=== PATIENT | male | born 1940 | race Caucasian/White ===

== ENCOUNTER → 2023-12-01 13:42 | Outpatient (REF) | payer MEDICARE, BC, SELFPAY ==
[2023-12-01 14:26] LABS: ALT (SGPT) 19 U/L (0-50); AST (SGOT) 27 U/L (17-59); Albumin 4.3 g/dl (3.5-5.0); Alkaline Phosphatase 62 U/L (38-126); Blood Urea Nitrogen 37 mg/dl (9-20); Calcium 9.6 mg/dl (8.4-10.2); Carbon Dioxide 26 mmol/L (22-30); Chloride 109 mmol/L (98-107); Glucose 107 mg/dl (70-99); Potassium 4.3 mmol/L (3.5-5.1); Sodium 140 mmol/L (135-145); Total Bilirubin 0.8 mg/dl (0.2-1.3); Total Protein 7.3 g/dl (6.3-8.2); eGFR 37.35
== END ==
LOC: RAD 13:42
PROVIDERS: ATTENDING PHYSICIAN Internal Medicine Cardiovascular Disease; FAMILY PHYSICIAN Internal Medicine; REFERRING PHYSICIAN Nurse Practitioner Family
DX: I48.92 Unspecified atrial flutter (principal); I73.9 Peripheral vascular disease, unspecified; R25.2 Cramp and spasm; I65.23 Occlusion and stenosis of bilateral carotid arteries
CPT/HCPCS: 36415; 80053; 93880

== ENCOUNTER → 2024-01-15 12:57 | Outpatient (REF) | payer MEDICARE, BC, SELFPAY | LOC: RAD 12:57 | PROVIDERS: ATTENDING PHYSICIAN Nurse Practitioner Family | DX: M79.606 Pain in leg, unspecified (principal); R22.43 Localized swelling, mass and lump, lower limb, bilateral | CPT/HCPCS: 93922; 93925 ==

== ENCOUNTER → 2024-06-17 17:00 | Outpatient (REF) | payer MEDICARE, BC, SELFPAY ==
[2024-06-26 09:04] LABS: HPV, High Risk Detected; HPV, High Risk Source Anal
== END ==
LOC: CLAB 17:00
PROVIDERS: ATTENDING PHYSICIAN Physician Assistant
DX: Z72.52 High risk homosexual behavior (principal)
CPT/HCPCS: 87624; 88112

== ENCOUNTER → 2024-07-20 20:03 | Outpatient (REF) | payer MEDICARE, BC, SELFPAY | LOC: PAVMRI 20:03 | PROVIDERS: ATTENDING PHYSICIAN Physician Assistant Medical; FAMILY PHYSICIAN Internal Medicine; REFERRING PHYSICIAN Pain Medicine Interventional Pain Medicine | DX: M54.16 Radiculopathy, lumbar region (principal) | CPT/HCPCS: 72148 ==

== ENCOUNTER 2024-09-15 06:22 | Day surgery (SDC) | payer MEDICARE, BC, SELFPAY ==
[2024-09-13 14:11] VITALS: BMI 23.1
[2024-09-15 11:15] VITALS: BP 128/85
[2024-09-15] MEDS: CELEBREX 200 MG PO (11:35)
[2024-09-15] MEDS: TYLENOL 1000 MG PO (11:35)
[2024-09-15 11:36] VITALS: BMI 23.1
[2024-09-15 14:00] VITALS: BP 123/65
--- NOTE | 2024-09-15 14:12 | W.IMMPOSTOP ---
Surgical Immed Post Op Note
-
Primary Surgeon: Jesse Adamson MD
Assisting Surgeon: MELANIE Morris
Pre-op Diagnosis: Anal dysplasia
Post-op Diagnosis: Anal dysplasia
Procedure Performed: High resolution anoscopy, anal biopsy, bilateral pudendal nerve block
Anesthesia Type: Sedation
Specimen / Cultures: Multiple, per op note
Estimated Blood Loss: 10 mL
Complications: None
Operative Findings: Per op note
--- NOTE | 2024-09-15 14:13 | OR.RPT ---
Operative Report
Operative Report
DATE OF OPERATION: 09/15/24
SURGEON: Jesse Adamson MD
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
OPERATION: Exam under anesthesia, high-resolution anoscopy, multiple anal biopsy, bilateral pudendal nerve block
ASSISTANTS:
1. MELANIE Morris
ANESTHESIA: Sedation with local
ESTIMATED BLOOD LOSS: 10 mL
FINDINGS:
1. Mild anal stenosis noted due to a narrow fibrotic band in the distal anal canal associated with a small fissure, about 3 mm x 1 mm, in the right posterior aspect of the anal canal; fibrotic band biopsied x 2 and edge of fissure biopsied
2. No obvious lesions noted; significant amount of acetowhite with Lugol's negative circumferentially in the distal anal canal, biopsied at multiple sites
SPECIMENS:
1. Posterior right deep anal biopsy
2. Posterior right superficial anal biopsy
3. Posterior midline band anal biopsy
4. Right lateral superficial anal biopsy
5. Right anterior deep anal biopsy
6. Anterior left superficial anal biopsy
7. Anterior midline band anal biopsy
8. Left lateral superficial anal biopsy
DRAINS: None
COMPLICATIONS: None
INDICATIONS: The patient is a 84-year-old male who initially presented with perianal irritation and itching associated with spotting of blood. As he has a history of MSM, an anal Pap was performed, which showed HPV 16 and atypical squamous cells
of undetermined significance. He was treated for hemorrhoids with Anusol cream, which resolved his symptoms. He was recommended to undergo high resolution anoscopy, which was attempted in the office. However, due to pain and discomfort, this was
aborted. Therefore, the patient was recommended to have high-resolution anoscopy with possible biopsy and fulguration done in the operating room with sedation. The operation was discussed with the patient in detail, including the risks, benefits and
alternatives. Risks described included, but not limited to bleeding, infection, urinary retention, damage to nearby structures such as the anal sphincter, fecal incontinence, anal stenosis, missed lesions, progression to anal cancer despite
monitoring and treatment, and anesthetic risks. The patient understood and agreed to proceed. The consent was signed and placed in the chart.
PROCEDURE IN DETAIL: The patient was taken to the operating room. The patient was placed on the operating table in prone position. Sequential compression devices were placed bilaterally. Sedation was commenced without complication. Two seat belts
were secured around the legs and upper back. The buttocks were taped apart. The perineum was shaved, prepped and draped in the usual fashion. A time-out was performed verifying the correct patient, procedure, operative site, positioning, and
special equipment.
Local anesthesia used was a mixture of 60 mL of 0.25% Marcaine epinephrine and 0.6 mg of dexamethasone. 40 mL was injected perianally at the beginning of the case. The anorectal exam was performed assessing all four quadrants of the anal canal
using Hill-Lanza retractors in progressively increasing size. There was a mild distal anal stenosis noted from a palpable fibrotic band, which would not accommodate the large Hill-Lanza retractor. There was a small anal fissure noted in the
posterior quadrant just right of midline. This was noted just distal to the fibrotic band and was quite small, approximately 3 mm x 1 mm in size. He had small to moderate internal hemorrhoids in the usual 3-column distribution. They did not
prolapse and were not irritated or bleeding, so they were left alone.
I placed a ray-rogelio soaked in 5% acetic acid within the anal canal and folded an external portion of it to cover the gurjit-anal region. This was left in place for 3 minutes and then removed. The anal canal was again visualized with Hill-Lanza
retractors. Each quadrant was examined using the laparoscope on highest zoom, allowing for high-resolution. Lugol's solution was then swabbed onto each quadrant under direct visualization using high-resolution. The direct visualization of the
proximal anal canal was significantly difficult due to the mild distal stenosis.
I first evaluated the posterior quadrant. The majority of the distal anoderm appeared acetowhite and Lugol's negative. However, this was flat with no visual or palpable lesions. I suspect this atypical staining may be related to fibrosis as
opposed to dysplasia. I performed 3 biopsies in the posterior quadrant. The first was just proximal to the dentate line to the right of midline, which was an area that appeared to have a mosaic pattern, overlying a hemorrhoid. The second biopsy
was distal to the dentate line off midline towards the right, and included the margin of the anal fissure. The third biopsy was in the posterior midline and was overlying the fibrotic band. Bleeding from each biopsy site was controlled with
electrocautery.
I evaluated the right lateral quadrant. Again, the majority of the distal anoderm appeared acetowhite and Lugol's negative. No visible lesions noted. The fourth biopsy was taken from the distal end of canal in the right lateral position.
Bleeding was controlled with electrocautery. The fifth biopsy was taken just proximal to the dentate line in the right anterior position due to an area of epithelium with a mosaic pattern. This was overlying a hemorrhoid. Electrocautery was not
sufficient to control the bleeding. Therefore, I placed a [id number] 2-0 Vicryl stitch at this biopsy site and hemostasis was achieved.
I evaluated the anterior quadrant. Again, the majority of the distal anoderm appeared acetowhite and Lugol's negative. No visible lesions noted. The sixth biopsy taken was in the anterior aspect, just left of midline, just distal to the dentate
line. The seventh biopsy was taken from the anterior midline at the level of the fibrotic band. Bleeding was controlled with electrocautery.
I evaluated the left lateral quadrant. Again, the majority of the distal anoderm appeared acetowhite and Lugol's negative. I performed the eighth biopsy in the left lateral position, distal to the dentate line. Bleeding was controlled with
electrocautery.
All biopsies were performed using a DeBakey forceps, elevating the tissue and excising a biopsy with Metzenbaum scissors, avoiding injury to deeper structures. The remaining 20 mL of local were injected. 5 mL was injected bilaterally for a pudendal
nerve block. 10 mL was injected around the surgical site and perianally. Hemostasis was reassessed once more using the small Hill-Lanza and was confirmed.
At this point, the procedure was complete. All needle, sponge and instrument counts were correct. The patient tolerated the procedure well and was transferred to the recovery room in stable condition with gauze dressing in place secured with silk
tape.
The assistance of Alexandra was required due to the complexity of the procedure. During the procedure, Alexandra assisted with retraction and laparoscopic visualization. I was present for the entirety of the case.
DICTATED BY: Jesse Adamson MD
[2024-09-15 14:15] VITALS: BP 114/66
[2024-09-15 14:30] VITALS: BP 119/70
[2024-09-15 14:45] VITALS: BP 111/74
== END 2024-09-15 15:03 | disposition home or self-care (01) ==
LOC: SDS 06:22
PROVIDERS: ATTENDING PHYSICIAN Surgery
DX: K62.82 Dysplasia of anus (principal); A63.0 Anogenital (venereal) warts; K62.4 Stenosis of anus and rectum; K60.2 Anal fissure, unspecified; K64.8 Other hemorrhoids; Z87.898 Personal history of other specified conditions
CPT/HCPCS: 45990; 46606; 88305; 88341; 88342

== ENCOUNTER → 2024-12-10 08:20 | Outpatient (REF) | payer MEDICARE, BC, SELFPAY ==
[2024-12-11 23:06] LABS: Lamotrigine (Lamictal) 2.4 ug/mL (3.0-15.0)
== END ==
LOC: REG 08:20
PROVIDERS: FAMILY PHYSICIAN Internal Medicine
DX: G40.309 Generalized idiopathic epilepsy and epileptic syndromes, not intractable, without status epilepticus (principal)
CPT/HCPCS: 36415; 80175

== ENCOUNTER 2024-12-29 06:13 | Day surgery (SDC) | payer MEDICARE, BC, SELFPAY ==
[2024-12-29 08:20] VITALS: BMI 21.5
[2024-12-29 08:34] VITALS: BP 114/70
[2024-12-29 08:35] VITALS: BMI 21.5
[2024-12-29] MEDS: CELEBREX 200 MG PO (08:51)
[2024-12-29] MEDS: TYLENOL 1000 MG PO (08:51)
[2024-12-29] MEDS: NORMOSOL-R/PLASMALYTE-A 1000 IV (08:52)
--- NOTE | 2024-12-29 11:20 | W.IMMPOSTOP ---
Surgical Immed Post Op Note
-
Primary Surgeon: Jesse Adamson MD
Assisting Surgeon: MELANIE Sotelo
Pre-op Diagnosis: Anal dysplasia, history of HPV
Post-op Diagnosis: Anal dysplasia, history of HPV
Procedure Performed: High resolution anoscopy, anal biopsies, fulguration, bilateral pudendal nerve block
Anesthesia Type: Sedation with local
Specimen / Cultures:
1. Right anterior superficial anal biopsy
2. Left anterior superficial anal biopsy
Estimated Blood Loss: 5 mL
Complications: None
Operative Findings: Per op note
--- NOTE | 2024-12-29 11:21 | OR.RPT ---
Operative Report
Operative Report
DATE OF OPERATION: 12/29/2024
SURGEON: Jesse Adamson MD
PREOPERATIVE DIAGNOSIS: Anal dysplasia, history of HPV
POSTOPERATIVE DIAGNOSIS: Anal dysplasia, history of HPV
OPERATION: Exam under anesthesia, high-resolution anoscopy, multiple anal biopsy, fulguration of anal lesion, bilateral pudendal nerve block
ASSISTANTS:
1. MELANIE Sotelo
ANESTHESIA: Sedation with local
ESTIMATED BLOOD LOSS: 5 mL
FINDINGS:
1. Acetowhite, Lugol's negative area in right anterior distal anal canal with vascular striations; biopsied and fulgurated
2. Acetowhite, Lugol's negative area in left anterior distal anal canal with visible borders, no vascular pattern; biopsied and fulgurated
3. Remainder of anal canal stained Lugol's positive
4. No evidence of fissure, proctitis or other anal pathology; small left posterior skin tag
SPECIMENS:
1. Right anterior superficial anal biopsy
2. Left anterior superficial anal biopsy
DRAINS: N/A
COMPLICATIONS: None
INDICATIONS: The patient is a 84-year-old male who initially presented with bleeding hemorrhoids that improved with nonoperative measures, but was found to have HPV and ASCUS on anal Pap. Due to his history of MSM, he was recommended to undergo
HRA. 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 As he is at elevated risk, I recommended a repeat surveillance high resolution anoscopy for possible repeat biopsies and fulguration. Due to mild anal stenosis, he
is unable to tolerate this procedure in the office. The operation was discussed with the patient in detail, including the risks, benefits and alternatives. Risks described included, but not limited to bleeding, infection, urinary retention, damage
to nearby structures such as the anal sphincter, fecal incontinence, anal stenosis, missed lesions, recurrence, progression to anal cancer despite monitoring and treatment, and anesthetic risks. The patient understood and agreed to proceed. The
consent was signed and placed in the chart.
PROCEDURE IN DETAIL: The patient was taken to the operating room. The patient was placed on the operating table in prone position. Sequential compression devices were placed bilaterally. Sedation was commenced without complication. Two seat belts
were secured around the legs and upper back. The buttocks were taped apart. The perineum was shaved, prepped and draped in the usual fashion. A time-out was performed verifying the correct patient, procedure, operative site, positioning, and
special equipment.
Local anesthesia used was a mixture of 60 mL of 0.25% Marcaine with epinephrine and 0.6 mg of dexamethasone. 40 mL was injected perianally at the beginning of the case. The anorectal exam was performed assessing all four quadrants of the anal canal
using Hill-Lanza retractors in progressively increasing size. There was a small skin tag at the anal verge in the left posterior position. There were no obvious masses, fissures, proctitis or other concerning anorectal pathology. His mild anal
stenosis had slightly improved and was able to accommodate the medium Hill-Lanza retractor.
I placed a ray-rogelio soaked in 5% acetic acid within the anal canal and folded an external portion of it to cover the gurjit-anal region. This was left in place for 3 minutes and then removed. The anal canal was again visualized with Hill-Lanza
retractors. Each quadrant was examined using the laparoscope on highest zoom, allowing for high-resolution. Lugol's 2% solution was then swabbed on to each quadrant under direct visualization using high-resolution.
In the perianal area, there was no concerning acetowhite, lugol's negative lesion so no biopsy was performed.
In the posterior quadrant, there was no concerning acetowhite, lugol's negative lesion so no biopsy was performed.
In the right lateral quadrant, there was a small patch in the right anterior position in the distal anal canal, quite close to the anal verge, that appeared acetowhite and Lugol's negative. The borders were indistinct but there appeared to be
vascular striations. Therefore, a biopsy was taken and the small patch was fulgurated. In the area of the right posterior position where the previous LSIL was, there were no concerning lesions.
In the anterior quadrant, there was a small patch in the left anterior position in the distal anal canal, close to the anal verge, that appeared acetowhite and Lugol's negative. The borders were distinct. There were no vascular patterns seen.
This small patch was biopsied and fulgurated. Hemostasis was controlled with electrocautery and one 2-0 Vicryl in a [id number] fashion.
In the left lateral quadrant, there was no concerning acetowhite, lugol's negative lesion so no biopsy was performed.
The remaining 20 mL of local were injected. 5 mL was injected bilaterally for a pudendal nerve block. 10 mL was injected around the surgical site and perianally. Hemostasis was reassessed once more using the small Homero-Lanza and was confirmed.
Surgicel was placed in the operative site prophylactically.
At this point, the procedure was complete. All needle, sponge and instrument counts were correct. The patient tolerated the procedure well and was transferred to the recovery room in stable condition with gauze dressing in place secured with silk
tape.
DICTATED BY: Jesse Adamson MD
[2024-12-29 11:28] VITALS: BP 112/64
[2024-12-29 11:30] VITALS: BP 116/70
[2024-12-29 11:45] VITALS: BP 122/70
[2024-12-29 12:00] VITALS: BP 121/68
== END 2024-12-29 12:30 | disposition home or self-care (01) ==
LOC: SDS 06:13
PROVIDERS: ATTENDING PHYSICIAN Surgery
DX: K62.82 Dysplasia of anus (principal); K64.9 Unspecified hemorrhoids; K62.89 Other specified diseases of anus and rectum; K64.4 Residual hemorrhoidal skin tags; K62.4 Stenosis of anus and rectum; Z86.19 Personal history of other infectious and parasitic diseases
CPT/HCPCS: 46601; 88305

== ENCOUNTER → 2025-03-19 08:16 | Outpatient (REF) | payer MEDICARE, BC, SELFPAY ==
[2025-03-19 08:35] LABS: % Basophils 1.6 % (0-2); % Eosinophils 3.1 % (0-6); % Immature Granulocytes 0.2 % (0-0.5); % Lymphocytes 34.1 % (20.5-51.1); % Monocytes 9.3 % (1.7-9.3); % Neutrophils 51.7 % (42.2-75.2); Absolute Basophils 0.1 10^3/uL (0-0.2); Absolute Eosinophils 0.2 10^3/uL (0-0.7); Absolute Lymphocytes 1.9 10^3/uL (1.2-3.4); Absolute Monocytes 0.5 10^3/uL (0.1-0.6); Absolute Neutrophils 2.8 10^3/uL (1.4-6.5); Hematocrit 36.5 % (39.0-52.0); Hemoglobin 12.4 g/dL (13.0-18.0); Mean Corpuscular Hgb 30.6 pg (27.0-31.0); Mean Corpuscular Volume 90.1 fL (80.0-94.0); Mean Platelet Volume 10.1 fL (7.4-10.4); Nucleated Red Blood Cells % 0 % (-); Platelet Count 243 10^3/uL (130-400); Red Blood Cell Count 4.05 10^6/uL (4.70-6.10); White Blood Cell Count 5.5 10^3/uL (4.8-10.8)
[2025-03-19 09:04] LABS: ALT (SGPT) 19 U/L (0-50); AST (SGOT) 24 U/L (17-59); Alkaline Phosphatase 66 U/L (38-126); Blood Urea Nitrogen 35 mg/dl (9-20); Calcium 9.5 mg/dl (8.4-10.2); Carbon Dioxide 23 mmol/L (22-30); Chloride 111 mmol/L (98-107); Glucose 90 mg/dl (70-99); Potassium 4.7 mmol/L (3.5-5.1); Sodium 141 mmol/L (135-145); Total Bilirubin 0.6 mg/dl (0.2-1.3); eGFR 46.19
== END ==
LOC: RAD 08:16
PROVIDERS: ATTENDING PHYSICIAN Nurse Practitioner Family
DX: K59.01 Slow transit constipation (principal); R14.0 Abdominal distension (gaseous)
CPT/HCPCS: 36415; 74018; 80053; 84443; 85025

== ENCOUNTER 2025-06-17 19:04 | Emergency (ER) | payer MEDICARE, BC, SELFPAY ==
[2025-06-17] VITALS (12 sets, daily range): BP systolic 133–190; BP diastolic 83–104; BMI 23.5
[2025-06-17 19:44] LABS: Hematocrit 39.4 % (39.0-52.0); Hemoglobin 13.5 g/dL (13.0-18.0); Mean Corp Hgb Conc. 34.3 g/dL (33.0-37.0); Mean Corpuscular Volume 88.1 fL (80.0-94.0); Nucleated Red Blood Cells % 0 % (-); Platelet Count 218 10^3/uL (130-400); Red Cell Dist. Width 14.6 % (11.5-14.5)
[2025-06-17 19:48] LABS: Glucose - Point of Care 91 mg/dl (70-99)
[2025-06-17 19:55] LABS: ALT (SGPT) 21 U/L (0-50); AST (SGOT) 32 U/L (17-59); Albumin 4.5 g/dl (3.5-5.0); Alkaline Phosphatase 53 U/L (38-126); Blood Urea Nitrogen 40 mg/dl (9-20); Calcium 9.5 mg/dl (8.4-10.2); Carbon Dioxide 24 mmol/L (22-30); Chloride 109 mmol/L (98-107); Glucose 94 mg/dl (70-99); Potassium 4.5 mmol/L (3.5-5.1); Sodium 139 mmol/L (135-145); Total Protein 7.3 g/dl (6.3-8.2); eGFR 39.51
--- NOTE | 2025-06-17 19:56 | ED.GENMED ---
History of Present Illness
General
Chief Complaint: Chest Pain
Source: patient
Exam Limitations: none
Time Seen by Provider: 06/17/25 19:44
Nursing documentation reviewed up to this point in time: agreed with
History of Present Illness
History of Present Illness:
Note:
CHIEF COMPLAINT(S)
Involuntary limb movements and inability to follow commands.
HISTORY OF PRESENT ILLNESS
The patient is an 85-year-old male who presented with an episode of involuntary leg movements, described by the witness as 'kicking his legs up and down.' At the time of evaluation, the patient was unable to follow commands but was able to hold up
his arms. However, he was unable to hold up his legs. The witness reported expressive aphasia during the episode. Blood pressure was noted to be 103/101 mmHg.
PHYSICAL EXAM
General: Unable to follow commands, episodic involuntary movements observed.
Cardiovascular: Blood pressure recorded at 103/101 mmHg.
Neurological: Unable to follow commands, expressive aphasia present, able to lift arms but not legs, involuntary leg movements, unable to hold up legs.
PROBLEM LIST
Acute Problems:
- Involuntary limb movements
- Inability to follow commands
- Expressive aphasia
- Abnormal blood pressure reading
DIFFERENTIAL DIAGNOSIS
The Differential Diagnosis includes, in no particular order and is not limited to:
- Stroke
- Transient Ischemic Attack (TIA)
- Seizure
- Delirium
- Encephalopathy
- Intracranial hemorrhage
- ACTUARY MANAGER infection
- Metabolic encephalopathy
- Medication effect or toxicity
- Syncope or pre-syncope
CARE-UPDATE
06/17/25 - 22:10
Dutjr-zjxk-xnd male responded well to IV Valium and Versed with stabilization. CT head showed no significant findings. The patient is now stable for discharge with no suspicion of cerebrovascular accident (CVA). Follow-up with the neurologist is
scheduled for Friday. D.M.B form has been completed.
EKG
My independent EKG interpretation is:
- Rhythm: Sinus rhythm with sinus arrhythmia
- [place]: Left axis deviation
- VT Interval: Normal
- QRS Duration: Normal
- QT Interval: Normal
Disposition:
SUMMARY OF ENCOUNTER
The patient presented to the emergency department with involuntary limb movements and inability to follow commands, suspected to be consistent with a seizure episode. During the encounter, the patients condition improved following administration of
treatment.
DISPOSITION
The patient is stable for discharge and will be sent home with instructions to follow up with a neurologist.
EMERGENCY TREATMENTS ADMINISTERED
The patient responded well to IV Valium (diazepam) and Versed (midazolam).
PLAN
The patient was discharged with follow-up care instructions to see a neurologist. The patient and caregiver were educated on seizure management and safety precautions.
FOLLOW-UP INSTRUCTIONS
The patient is advised to follow up with a neurologist as scheduled.
MEDICATION RECONCILIATION
The patient received diazepam and midazolam during the visit. No new prescriptions were given upon discharge.
MEDICAL DECISION MAKING
-Complexity of Data Reviewed: Acutely, the patients problems, such as involuntary limb movements and inability to follow commands, were addressed. Differential diagnosis considered includes stroke, transient ischemic attack (TIA), seizure, delirium,
encephalopathy, intracranial hemorrhage, central nervous system (ACTUARY MANAGER) infection, metabolic encephalopathy, medication effect or toxicity, syncope, or pre-syncope.
-Data:
Category 1
My independent interpretation of EKG shows sinus rhythm with sinus arrhythmia and left axis deviation.
-Risk:
Decisions regarding diagnostic testing were made, and the patient was ultimately discharged with safety follow-up. Consideration of Admission/Observation: Escalation of care including admission/observation was considered given the complexity and
risk of the patients presenting complaint, exam findings, and their underlying comorbidities. However, ultimately I feel the patient is safe for outpatient management with close follow-up. Reasoning: Work-up reassuring, does not reveal any acute
life/organ-threatening processes, patients symptoms well controlled upon reevaluation, reexamination is reassuring, vitals are stable, patient agreeable with discharge, reliable for follow-up.
DIAGNOSIS
Seizure, unspecified (G40.909)
Expressive aphasia (R47.01)
Past History
Past History
ED Past Medical History: Arrthythmia (PAF), COPD, CVA, HTN, Seizures and Other (Kidney stones)
ED Past Surgical History: Appendectomy, Cardiac (A. fib ablation), Orthopedic (Right knee meniscus, lumbar laminectomy December 2016) and Other (cardiac ablation x 2)
Social History
Tobacco: Former smoker
Alcohol: Occasional
Drug: None
Personal: Partner
Living: with family
Employment: Retired
Family History
Family History: CAD
Phy Exam
Physical Exam
Physical Exam:
.
Scores
Heart Score for Chest Pain Patients
STEMI patient?: No
History: Slightly or Non-Suspicious
ECG: Normal
Age: >/= 65 years
Risk Factors: 1 or 2 Risk Factors
Troponin: </= Normal Limit
Heart Score for Chest Pain Patients: 3
Heart Score Risk: 2.5% MACE over next 6 weeks
Course
Orders/Labs/Results
Orders:
Orders
06/17/25 19:07
Electrocardiogram (*1) Urgent
Reason for Study: Other
Other Reason for Exam: Respiratory Distress
Cardiac Monitoring- Treatment ONCE
EKG- Treatment ONCE
IV Insert/Care/Rem.- Treatment PRN
O2 Therapy [RESP] Urgent
Titrate/Wean O2 to maintain O2 sat greater than (%): 93
Special Instructions: TO MAINTAIN CONTINUOUS O2 SATS >/= 93%
Pulse Ox/cont/shift [RESP] Urgent
Quantity: 1
Special Instructions: continuous pulse ox
06/17/25 19:25
Complete Blood Count/With Diff Urgent
Comprehensive Metabolic Panel Urgent
NT-proBNP Urgent
Troponin I Urgent
06/17/25 19:50
CT HEAD STROKE ALERT W/o Cont Stat
Reason For Exam: stroke alert aphasia
diazePAM [Valium Injection] 2 mg IV NOW STA
06/17/25 19:51
diazePAM [Valium Injection] 10 mg .ROUTE .STK-MED ONE
06/17/25 19:59
Midazolam HCl [Versed] 2 mg .ROUTE .STK-MED ONE
Midazolam HCl [Versed] 2 mg IV NOW STA
06/17/25 20:51
Cr Chest Portable [CR Chest Portable - 1 View] Urgent
Comment:
Reason For Exam: chest pain
Reason Study Needs to be Portable: Unable to Transport
Abnormal Lab Results
06/17/25
19:25
RBC 4.47 L 10^6/uL
(4.70-6.10)
RDW 14.6 H %
(11.5-14.5)
Chloride 109 H mmol/L
(98-107)
BUN 40 H mg/dl
(9-20)
Creatinine 1.7 H mg/dL
(0.7-1.3)
06/17/25 19:25
06/17/25 19:25
Vital Signs
Initial and Last Documented VS:
Initial Vital Signs
Temp Pulse Resp BP Pulse Ox
98 F 96 20 181/100 98
06/17/25 19:14 06/17/25 19:14 06/17/25 19:14 06/17/25 19:14 06/17/25 19:14
Last Documented Vital Signs
Temp Pulse Resp BP Pulse Ox
98.0 F 79 16 150/104 100
06/17/25 20:17 06/17/25 21:00 06/17/25 21:00 06/17/25 21:00 06/17/25 21:00
*Pulse Oximetry
SaO2: 98
Oxygen Mode of Delivery: Room air
Patient hypoxic: no
*Critical Care Note
Total Time (30-74mins, 75-104mins- exclusive of procedures): Not Applicable
ED Attending Note
-
Portions of this chart may have been created with voice recognition software.� Occasional wrong word or��sound alike� substitutions may have occurred due to the inherent limitations of voice recognition software.
Discharge Plan
Departure
Patient Disposition: Home (Routine Discharge)
Date of Disposition: 06/17/25
Time of Disposition: 22:11
Patient with high blood pressure during this ER visit?: Yes
Condition: Good
Discharge Problem:
Seizure
Instructions: Seizures, BLOOD PRESSURE
Prescriptions:
No Action
atorvastatin 10 MG tablet
10 mg PO HS
lisinopril 20 MG tablet
20 mg PO BID
Centrum Silver Men 1 EACH tablet
1 ea PO DAILY
amlodipine 2.5 mg Tablet
2.5 mg PO BID
lamotrigine 200 mg tablet extended release 24hr
200 mg PO DAILY
tamsulosin 0.4 mg capsule
0.4 mg PO DAILY
PreserVision AREDS-2 250-90-40-1 mg Capsule
1 tab PO BID
Hydroxycut tablet
1 tab PO DAILY
Preparation H 0.25-14-74.9 % Ointment
1 applic VT DAILY
melatonin 12 mg Tablet
12 mg PO HS
Eliquis 5 mg Tablet
5 mg PO BID
Yomi 60 mg Capsule
120 mg PO DAILY
Yomi 60 mg Capsule
60 mg PO QPM
lubiprostone [Amitiza] 24 mcg Capsule
24 mcg PO BID
sildenafil 100 mg Tablet
100 mg PO DAILY
ascorbic acid (vitamin C) [Vitamin C] 500 mg Tablet
500 mg PO DAILY
doxycycline hyclate 50 mg Tablet
50 mg PO BID
naproxen [Naprosyn] 500 mg tablet
500 mg PO BID Qty: 14 0RF
Referrals:
Francisco Aguilar CRNP [Family Provider, General] - Call in 1-3 days for appt
Activity Restrictions/Additional Instructions:
Follow up with your neurologist next week.
Interventions
Interventions:
*Risk Screen - Suicide Last Done: 06/17/25 19:14
*General Assessment Last Done: 06/17/25 19:14
*Neglect/Abuse Screening Last Done: 06/17/25 20:04
*ED COVID-19 Vaccine History Last Done: 06/17/25 19:14
ED- Cardiac Assessment Last Done: 06/17/25 20:07
Discharge Date and Time
Print Language: BULGARIAN
[2025-06-17] MEDS: VALIUM INJECTION 2 MG IV (20:01)
[2025-06-17] MEDS: VERSED 2 MG IV (20:01)
[2025-06-17 20:06] LABS: Troponin I < 0.012 ng/ml
--- NOTE | 2025-06-17 20:09 | EDRN ---
This staff writer was at patient bedside attempting to insert IV. Pt suddenly began to shake violently, unable to speak but could understand what was being said. Dr. Jovel asked to assess at bedside, and at 1945 stoke alert was called. Pt brought to CT
scan, verbal order for Valium was given by Savage AMARO in CT scan. Upon arrival back to room 2mg versed given and shaking stopped. Pt given supplemental oxygen and now able to speak more clear.
== END 2025-06-17 22:44 | disposition home or self-care (01) ==
LOC: EMR 19:04
PROVIDERS: Emergency Medicine; EMERGENCY PHYSICIAN Emergency Medicine; FAMILY PHYSICIAN Nurse Practitioner Family
DX: R56.9 Unspecified convulsions (principal); R47.01 Aphasia; E78.00 Pure hypercholesterolemia, unspecified; I48.0 Paroxysmal atrial fibrillation; J44.9 Chronic obstructive pulmonary disease, unspecified; I10 Essential (primary) hypertension; Z86.73 Personal history of transient ischemic attack (TIA), and cerebral infarction without residual deficits; Z87.891 Personal history of nicotine dependence
CPT/HCPCS: 99284; 96374; 96375; 70450; 71045; 80053; 82962; 83880; 84484; 85025; 93005

== ENCOUNTER → 2025-07-16 09:45 | Outpatient (REF) | payer MEDICARE, BC, SELFPAY ==
[2025-07-16 10:25] LABS: Hematocrit 37.6 % (39.0-52.0); Hemoglobin 12.8 g/dL (13.0-18.0); Mean Corp Hgb Conc. 34.0 g/dL (33.0-37.0); Mean Corpuscular Volume 90.6 fL (80.0-94.0); Nucleated Red Blood Cells % 0 % (-); Platelet Count 208 10^3/uL (130-400); Red Cell Dist. Width 14.6 % (11.5-14.5)
[2025-07-16 10:53] LABS: ALT (SGPT) 18 U/L (0-50); AST (SGOT) 26 U/L (17-59); Albumin 4.1 g/dl (3.5-5.0); Alkaline Phosphatase 41 U/L (38-126); Blood Urea Nitrogen 31 mg/dl (9-20); Calcium 9.2 mg/dl (8.4-10.2); Carbon Dioxide 28 mmol/L (22-30); Chloride 106 mmol/L (98-107); Glucose 106 mg/dl (70-99); Potassium 4.1 mmol/L (3.5-5.1); Sodium 140 mmol/L (135-145); Total Protein 6.7 g/dl (6.3-8.2); eGFR 42.49
== END ==
LOC: REG 09:45
PROVIDERS: ATTENDING PHYSICIAN Nurse Practitioner Family
DX: N18.32 Chronic kidney disease, stage 3b (principal); K92.1 Melena; I48.92 Unspecified atrial flutter
CPT/HCPCS: 36415; 80053; 85025

== ENCOUNTER → 2025-07-26 11:34 | Outpatient (REF) | payer MEDICARE, BC, SELFPAY ==
[2025-07-26 12:21] LABS: Hematocrit 39.9 % (39.0-52.0); Hemoglobin 13.7 g/dL (13.0-18.0); Mean Corp Hgb Conc. 34.3 g/dL (33.0-37.0); Mean Corpuscular Volume 87.9 fL (80.0-94.0); Nucleated Red Blood Cells % 0 % (-); Platelet Count 200 10^3/uL (130-400); Red Cell Dist. Width 14.3 % (11.5-14.5)
[2025-07-26 12:49] LABS: Blood Urea Nitrogen 30 mg/dl (9-20); Calcium 10.0 mg/dl (8.4-10.2); Carbon Dioxide 29 mmol/L (22-30); Chloride 105 mmol/L (98-107); Glucose 90 mg/dl (70-99); Iron 106 ug/dl (49-181); Potassium 4.8 mmol/L (3.5-5.1); Sodium 139 mmol/L (135-145); eGFR 42.49
[2025-07-26 12:58] LABS: Total Iron Binding Capacity 283 ug/dl (261-462)
[2025-07-26 13:26] LABS: Ferritin 28.1 ng/ml (17.9-464.0)
== END ==
LOC: REG 11:34
PROVIDERS: ATTENDING PHYSICIAN Nurse Practitioner Family; FAMILY PHYSICIAN Internal Medicine; OTHER PHYSICIAN Dentist General Practice; OTHER PHYSICIAN Psychiatry & Neurology Neurology
DX: N18.32 Chronic kidney disease, stage 3b (principal); K92.1 Melena; I48.92 Unspecified atrial flutter
CPT/HCPCS: 36415; 80048; 82728; 83540; 83550; 85025